=== PATIENT | male | born 1980 | race Caucasian/White ===

== ENCOUNTER 2016-10-19 01:59 | Inpatient (IN) | payer MEDICAID, OTHER ==
[~2016-10-19] VITALS: Ht 172.7 cm; Wt 78.5 kg
[2016-10-19 02:04] VITALS: Ht 172.7 cm; Wt 78.5 kg
[2016-10-19] MEDS ORDERED: ONDANSETRON 4 MG INJ IV STA (03:37)
[2016-10-19] MEDS ORDERED: morphine 4 MG/ML VIAL IV STA (03:37)
[2016-10-19] MEDS ORDERED: SOD CHLORIDE 0.9% 1,000 ML IV STA (03:37)
[2016-10-19] MEDS ORDERED: LIDOCAINE/MYLANTA 40 ML BTL PO STA (03:37)
[2016-10-19] MEDS ORDERED: FAMOTIDINE 20 MG INJ IV STA (03:37)
[2016-10-19 04:17] LABS: ADD SCAN DIFF NO
[2016-10-19] MEDS ORDERED: MULTI PO (04:37)
[2016-10-19] MEDS ORDERED: IBUP200C11 PO (04:37)
[2016-10-19 04:39] LABS: ALBUMIN 4.9 g/dl (3.3-4.9); ALBUMIN/GLOBULIN RATIO 1.4; BILIRUBIN,INDIRECT 2.6 mg/dl (0-1.1); BILIRUBIN,TOTAL 4.6 mg/dl (0.2-1.3); CALCIUM 9.9 mg/dl (8.4-10.2); CREATININE 0.69 mg/dl (0.61-1.24); POTASSIUM 3.6 mmol/L (3.5-5.1); TOTAL PROTEIN 8.4 g/dl (6.1-8.1)
[2016-10-19 04:52] LABS: BASOPHILS % 0.8 % (0.0-2.0); EOSINOPHILS # 0.3 10^3/ul (0.0-0.5); EOSINOPHILS % 5.8 % (0.0-7.0); HEMATOCRIT 43.6 % (42.0-52.0); HEMOGLOBIN 14.7 g/dl (14.0-18.0); LYMPHOCYTES # 1.5 10^3/ul (0.8-2.9); LYMPHOCYTES % 29.8 % (15.0-51.0); MEAN CORPUSCULAR HEMOGLOBIN 29.5 pg (29.0-33.0); MEAN CORPUSCULAR HGB CONC 33.7 g/dl (32.0-37.0); MEAN CORPUSCULAR VOLUME 87.6 fl (82.0-101.0); MEAN PLATELET VOLUME 10.4 fl (7.4-10.4); MONOCYTE # 0.5 10^3/ul (0.3-0.9); MONOCYTES % 8.9 % (0.0-11.0); NEUTROPHIL # 2.8 10^3/ul (1.6-7.5); NEUTROPHILS % 54.5 % (39.0-77.0); PLATELET COUNT 378 10^3/UL (140-415); RED BLOOD COUNT 4.98 10^6/ul (4.70-6.10); RED CELL DISTRIBUTION WIDTH 12.7 % (11.5-14.5); WHITE BLOOD COUNT 5.2 10^3/ul (4.8-10.8)
[2016-10-19 05:19] LABS: ADD UMIC YES; UR ASCORBIC ACID 40 mg/dL (NEGATIVE); UR BILIRUBIN (Dip) 2+ mg/dL (NEGATIVE); UR BLOOD (Dip) NEGATIVE (NEGATIVE); UR CLARITY SLIGHTLY CLOUDY (CLEAR); UR COLOR AMBER (YELLOW); UR GLUCOSE (Dip) NEGATIVE (NEGATIVE); UR KETONES (Dip) 1+ mg/dL (NEGATIVE); UR LEUKOCYTE ESTERASE (Dip) NEGATIVE Leu/ul (NEGATIVE); UR MUCUS MODERATE /HPF (NONE SEEN); UR NITRITE (Dip) NEGATIVE (NEGATIVE); UR RBC 1 /HPF (0-5); UR TOTAL PROTEIN (Dip) 1+ mg/dl (NEGATIVE); UR UROBILINOGEN (Dip) 2+ mg/dL (NEGATIVE)
--- NOTE | 2016-10-19 05:46 | ERA ---
ER Documentation Chief Complaint Date/Time DATE: 10/19/16 TIME: 05:43 Chief Complaint AP x 1 month, intermittent. +nausea. worse when eating HPI 36-year-old male comes in with abdominal pain for 1 month intermittent with associated nausea when eating. Pain is mild to moderate intensity. No fevers no chills. No other current complaints. Pain is mild to moderate intensity. ROS All systems reviewed and are negative except as per history of present illness. Medications Home Meds Reported Medications Multivitamins* (Theragran*) 1 Tab Tab, 1 TAB PO DAILY, TAB 10/19/16 Ibuprofen* (Advil*) 200 Mg Capsule, 200 MG PO Q6H Y for PAIN, CAP 10/19/16 Allergies Allergies: Coded Allergies: No Known Drug Allergies (Verified Allergy, Unknown, 10/19/16) PMhx/Soc Medical and Surgical Hx: pt denies Medical Hx, pt denies Surgical Hx Hx Alcohol Use: Yes (occassional) Hx Substance Use: No Hx Tobacco Use: No Smoking Status: Never smoker Physical Exam Vitals Vital Signs Date Time Temp Pulse Resp B/P Pulse Ox O2 Delivery O2 Flow Rate FiO2 10/19/16 02:04 97.9 67 18 139/83 98 Physical Exam Const: [] Head: Atraumatic Eyes: Normal Conjunctiva ENT: Normal External Ears, Nose and Mouth. Neck: Full range of motion..~ No meningismus. Resp: Clear to auscultation bilaterally Cardio: Regular rate and rhythm, no murmurs Abd: Soft, non tender, non distended. Normal bowel sounds Skin: No petechiae or rashes Back: No midline or flank tenderness Ext: No cyanosis, or edema Neur: Awake and alert Psych: Normal Mood and Affect Result Diagram: 10/19/16 0350 10/19/16 0350 Results 24 hrs Laboratory Tests Test 10/19/16 03:50 White Blood Count 5.210^3/ul Red Blood Count 4.9810^6/ul Hemoglobin 14.7g/dl Hematocrit 43.6% Mean Corpuscular Volume 87.6fl Mean Corpuscular Hemoglobin 29.5pg Mean Corpuscular Hemoglobin Concent 33.7g/dl Red Cell Distribution Width 12.7% Platelet Count 83168^3/UL Mean Platelet Volume 10.4fl Neutrophils % 54.5% Lymphocytes % 29.8% Monocytes % 8.9% Eosinophils % 5.8% Basophils % 0.8% Nucleated Red Blood Cells % 0.0/100WBC Neutrophils # 2.810^3/ul Lymphocytes # 1.510^3/ul Monocytes # 0.510^3/ul Eosinophils # 0.310^3/ul Basophils # 0.010^3/ul Nucleated Red Blood Cells # 0.010^3/ul Urine Color LACY Urine Clarity SLIGHTLY CLOUDY Urine pH 5.0 Urine Specific [place] 1.030 Urine Ketones 1+mg/dL Urine Nitrite NEGATIVEmg/dL Urine Bilirubin 2+mg/dL Urine Urobilinogen 2+mg/dL Urine Leukocyte Esterase NEGATIVELeu/ul Urine Microscopic RBC 1/HPF Urine Microscopic WBC 4/HPF Urine Mucus MODERATE/HPF Urine Hemoglobin NEGATIVEmg/dL Urine Glucose NEGATIVEmg/dL Urine Total Protein 1+mg/dl Sodium Level 142mmol/L Potassium Level 3.6mmol/L Chloride Level 98mmol/L Carbon Dioxide Level 28mmol/L Anion Gap 20 Blood Urea Nitrogen 14mg/dl Creatinine 0.69mg/dl Glucose Level 102mg/dl Calcium Level 9.9mg/dl Total Bilirubin 4.6mg/dl Direct Bilirubin 2.00mg/dl Indirect Bilirubin 2.6mg/dl Aspartate Amino Transf (AST/SGOT) 125IU/L Alanine Aminotransferase (ALT/SGPT) 375IU/L Alkaline Phosphatase 204IU/L Total Protein 8.4g/dl Albumin 4.9g/dl Globulin 3.50g/dl Albumin/Globulin Ratio 1.40 Lipase 92U/L Current Medications Medications (Trade) Dose Ordered Sig/Sena Route PRN Reason Start Time Stop Time Status Last Admin Dose Admin Sodium Chloride (NS) 1,000 ml @ 1,000 mls/hr Q1H STAT IV 10/19/16 03:37 10/19/16 04:36 DC 10/19/16 03:56 Morphine Sulfate (morphine) 4 mg ONCE STAT IV 10/19/16 03:37 10/19/16 03:39 DC 10/19/16 03:56 Ondansetron HCl (Zofran Inj) 4 mg ONCE STAT IV 10/19/16 03:37 10/19/16 03:39 DC 10/19/16 03:56 Famotidine (Pepcid Iv) 20 mg ONCE STAT IV 10/19/16 03:37 10/19/16 03:39 DC 10/19/16 03:56 Miscellaneous Medication (Gi Cocktail (2)) 40 ml ONCE STAT PO 10/19/16 03:37 10/19/16 03:39 DC 10/19/16 03:56 Procedures/MDM Medical decision-makin-year-old male elevation in LFTs likely consistent with choledocholithiasis. Patient will be admitted. Dr. Anthony will be consulted for surgery. Patient be admitted to hospitalist. Departure Diagnosis: Primary Impression: Cholecystitis Condition: Serious CHARI GIPSON Oct 19, 2016 05:46
[2016-10-19] MEDS ORDERED: PIPER-TAZO 3.375 GM IV (PMX) 100 ML IVPB ONE (06:00)
--- NOTE | 2016-10-19 06:03 | RADRPT ---
PROCEDURE: ULTRASOUND LIMITED ABDOMEN CLINICAL INDICATION: 36-year-old male with abdominal pain. TECHNIQUE: Multiple sonographic of the right upper quadrant of the abdomen were obtained. The imag es were reviewed on a PACS workstation. COMPARISON: None. FINDINGS: The pancreas is partially visualized and is otherwise without abnormal echogenicity. The liver displays normal echogenicity. The liver measures 18.1 cm in length. No evidence of intrah epatic biliary ductal dilatation is seen. The portal and hepatic veins are unremarkable. The gallbladder is distended and contains multiple shadowing stones. The gallbladder wall is thicke marysol measuring 5.1 mm. No pericholecystic fluid is seen. The common bile duct measures 6.1 mm and is mildly dilated. The right kidney displays normal echogenicity. The right kidney measures 12.1 cm in maximal length. No caliectasis or hydronephrosis is seen. No free fluid is seen. IMPRESSION: Cholelithiasis with thickened gallbladder wall and mildly dilated common bile duct. .Cristobal Nobles MD, MD Date Time Electronically viewed and signed by .Cristobal Nobles MD, on 10/19/2016 06:03 .M/
[2016-10-19] MEDS ORDERED: ONDANSETRON 4 MG INJ IV PRN (07:30)
[2016-10-19] MEDS ORDERED: NACL 0.9% 3 ML SYG IV SCH (07:30)
[2016-10-19] MEDS ORDERED: ACETAMINOPHEN 325 MG TAB PO PRN (07:30)
[2016-10-19 07:58] VITALS: BP 118/68; RESP 19
[2016-10-19] MEDS: SOD CHLORIDE 0.9% 1,000 ML IV SCH (08:00)
[2016-10-19] MEDS: morphine 2 MG INJ IV PRN ×3 (10:00→23:19)
--- NOTE | 2016-10-19 10:03 | HP ---
Date/Time of Note Date/Time of Note DATE: 10/19/16 TIME: 09:59 Assessment/Plan VTE Prophylaxis VTE Prophylaxis Intervention: SCD's Assessment/Plan Chief Complaint/Hosp Course 1. Symptomatic cholelithiasis. Possible choledocholithiasis. The patient will be kept n.p.o. The patient will be provided with adequate pain control. MRCP will be ordered to evaluate for any underlying choledocholithiasis. General surgery and gastroenterology consult will be obtained. 2. Transaminitis with hyperbilirubinemia. Most probably secondary to #1. Management as per #1. Plan: The patient will be admitted to inpatient medical surgical floor. The patient will be kept n.p.o. The patient will be started on DVT prophylaxis and gastrointestinal prophylaxis. The patient will remain a full code. Activities will be as tolerated. The rest of the patient's management will be based on the clinical course and the results of diagnostic studies. Based on the patient's clinical presentation, he most probably requires at least one midnight's stay for further management and evaluation of his clinical presentation. The case and management of this patient was fully discussed with . Problems: HPI/ROS Admit Date/Time Admit Date/Time Oct 19, 2016 at 05:57 Hx of Present Illness Reason for admission: Abdominal pain 1 month. Positive nausea. Consultants 1. Андрей Anthony MD, General surgery. 2. Magaly Rodriguez MD, Gastroenterology. This is a 36-year-old male with no significant past medical history who came to the emergency room with chief complaint of abdominal pain that has been intermittent and going on for the past 1 month with associated nausea. The patient verbalized the abdominal pain is epigastric that it is worse after eating with radiation to the back. The patient verbalized associated nausea but no vomiting. Patient denied any fevers. The patient rated the abdominal pain as 10/10. The patient sought medical attention twice as outpatient when he was sent home on antacids with no significant improvement. The patient denied any chest pain, dyspnea, dysuria, hematuria, diarrhea, melena, or hematochezia. In the emergency room, the patient was noticed to have hyperbilirubinemia with underlying transaminitis. The patient underwent a gallbladder ultrasound that showed cholelithiasis with thickened gallbladder wall and mildly dilated common bile duct. The patient was treated with IV Zosyn, IV analgesics and IV antiemetics in the emergency room. General surgery consult was called by the ER physician. ROS Constitutional: poor po Eyes: no complaints ENT: no complaints Respiratory: no complaints Cardiovascular: no complaints Gastrointestinal: decreased appetite, nausea, pain Genitourinary: no complaints Musculoskeletal: no complaints Skin: no complaints Neurologic: no complaints Endocrine: no complaints Lymphatic: no complaints Psychological: no complaints Immunologic: no complaints PMH/Family/Social Past Medical History Medical History: no pertinent history Past Surgical History Past Surgical Hx: no surgical history Family History Significant Family History: diabetes Social History Works in [employer]. Alcohol Use: occasionally Smoking Status: Never smoker Drug Use: none Exam/Review of Systems Vital Signs Vitals Vital Signs Date Time Temp Pulse Resp B/P Pulse Ox O2 Delivery O2 Flow Rate FiO2 10/19/16 07:58 98.5 67 19 118/68 99 10/19/16 07:00 Room Air Exam Exam General: Adequately build 36 year-old male lying in bed in no apparent distress. HEENT: Normocephalic, atraumatic. Eyes: Icteric sclerae, conjunctivae clear. ENT : Nasal septum midline, oral mucosa moist. Neck supple, no JVD noticed. Respiratory: Bilaterally clear breath sounds. No use of accessory muscles of respiration. No adventitious breath sounds. Cardiovascular: S1, S2 heard. No murmurs or gallops. Abdomen: Soft and nondistended. Bowel sounds positive in all 4 quadrants. Minimal epigastric tenderness. No Almodovar's sign. Genitourinary: Deferred. Extremities: No cyanosis, no clubbing, no edema. Peripheral pulses palpable. Neurologic: Cranial nerves II through XII grossly intact. The patient is awake, alert, and oriented. Skin: Normal skin turgor. No skin rashes. Labs Result Diagram: 10/19/16 0350 10/19/16 0350 Medications Medications Current Medications Sodium Chloride (NS) 1,000 ml @ 70 mls/hr [id number] IV Last administered on 10/19t 08:00; Admin Dose 70 MLS/HR; Start 10/19/16 at 11:00 Ondansetron HCl (Zofran Inj) 4 mg Q6H PRN IV NAUSEA AND/OR VOMITING; Start 02/25 at 07:30 Acetaminophen (Tylenol Tab) 650 mg Q6H PRN PO PAIN LEVEL 1-3 OR FEVER; Start at 07:30 Morphine Sulfate (morphine) 2 mg Q4H PRN IV SEVERE PAIN LEVEL 7-10; Start 10/19 at 07:30 Pantoprazole 40 mg 40 mg DAILY@06 IV ; Start 10/20/16 at 06:00 Piperacillin Sod/ Tazobactam Sod (Zosyn 3.375gm/ 100 ml (Pmx)) 100 ml @ 200 mls /hr Q6 IVPB ; Start 10/19/16 at 12:00 Procedures Procedures Gallbladder Ultrasound IMPRESSION: Cholelithiasis with thickened gallbladder wall and mildly dilated common bile duct. STEPHANIE HEATH NP Oct 19, 2016 10:03 STEPHANIE HEATH NP Oct 19, 2016 10:03
[2016-10-19 11:35] LABS: THYROID STIMULATING HORMONE 0.859 MIU/L (0.465-4.680)
[2016-10-19] MEDS: PIPER-TAZO 3.375 GM IV (PMX) 100 ML IVPB SCH ×3 (11:48→23:19)
--- NOTE | 2016-10-19 13:35 | RADRPT ---
PROCEDURE: MRCP. CLINICAL INDICATION: Abdominal pain. TECHNIQUE: MRCP was performed on a high field MRI scanner. Patient was examined without contrast. 3-D coronal rotating MIP images of the biliary tree are available for review. COMPARISON: Gallbladder ultrasound 10/19/2016. FINDINGS: The gallbladder is mildly distended. Multiple round signal voids are seen within the gallbladder ne ck compatible with cholelithiasis. Mild gallbladder wall edema is observed. There is no pericholec ystic fluid. The common bile duct is dilated measuring approximately 8.5 mm in greatest diameter. Multiple small signal voids are seen within the distal portion of the common bile duct compatible wi th choledocholithiasis. Moderate intrahepatic biliary duct dilatation is present. There is no panc reatic duct dilatation. The liver and spleen are homogeneous in signal intensity. The pancreas and adrenal glands are unrem arkable. The kidneys are symmetric in size and signal intensity. There is no hydronephrosis or perinephric e dee. The abdominal aorta is normal in caliber. There is no periaortic / retroperitoneal lymphadenopathy. The stomach is collapsed. The visualized portions of the small and large intestines are unremarkabl e. There is no ascites. IMPRESSION: Cholelithiasis with mild gallbladder distension and wall thickening suggesting sequelae of cholecyst itis. Choledocholithiasis with moderate intrahepatic biliary duct dilatation. RPTAT: HLST .Grisel Lugo MD, Date Time Electronically viewed and signed by .Grisel Lugo MD, on 10/19/2016 13:35 .T/
[2016-10-19] MEDS ORDERED: PIPER-TAZO 3.375 GM IV (PMX) 100 ML IVPB SCH (14:00)
--- NOTE | 2016-10-19 15:04 | CONS ---
Date/Time of Note Date/Time of Note DATE: 10/19/16 TIME: 14:51 Assessment/Plan Assessment/Plan Additional Assessment/Plan Assessment * Transaminitis Choledocholithiasis with cholecystolithiasis Plan * ERCP risks and benefit explained to patient and agreed with the planned procedure * Continue present management Consultation Date/Type/Reason Admit Date/Time Oct 19, 2016 at 05:57 Date of Consultation: Oct 19, 2016 Type of Consultation: Gastroenterology Reason for Consultation Choledocholithiasis Referring Provider: STEPHANIE HEATH NP Hx of Present Illness 36 year old male with no known past medical history presented in the emergency room wit right upper quadrant pain with nausea but no vomiting.Present condition started 1 month as on and off vague epigastric pain occurring on an off getting worse 2 days prior to admission with nausea but no vomiting ,fever nor hematemesis .emergency room workup revealed WBC 5,2,hemoglobin 14.7hematocrit 43.6,total bilirubin 4.6,AST 125,ALT 375,alkaline phosphatase 204 ultrasound revealed Cholelithiasis with thickened gallbladder wall and mildly dilated common bile duct. MRCP Cholelithiasis with mild gallbladder distension and wall thickening suggesting sequelae of cholecystitis.Choledocholithiasis with moderate intrahepatic biliary duct dilatation. We have discussed the planned procedure ERCP to the patient and agreed with the planned procedure Constitutional: improved, no complaints Eyes: no complaints ENT: no complaints Respiratory: no complaints Cardiovascular: no complaints Gastrointestinal: decreased appetite, nausea, pain Genitourinary: no complaints Musculoskeletal: no complaints Skin: no complaints Neurologic: no complaints Endocrine: no complaints Lymphatic: no complaints Psychological: no complaints Immunologic: no complaints Past Medical History Medical History: no pertinent history Past Surgical History Past Surgical Hx: no surgical history Social History Alcohol Use: occasionally Smoking Status: Unknown if ever smoked Drug Use: none Exam/Review of Systems Vital Signs Vitals Vital Signs Date Time Temp Pulse Resp B/P Pulse Ox O2 Delivery O2 Flow Rate FiO2 10/19/16 07:58 98.5 67 19 118/68 99 10/19/16 07:00 Room Air Exam Constitutional: alert, oriented, well developed Psych: nl mood/affect, no complaints Head: atraumatic, normocephalic Eyes: icteric ENMT: nl external ears & nose Neck: non-tender, supple Respiratory: clear to auscultation, normal air movement Cardiovascular: nl pulses, regular rate and rhythm Gastrointestinal: nl liver, spleen, non-tender, soft Musculoskeletal: nl extremities to inspection, nl gait and stance Extremities: normal pulses Neurological: nl mental status, nl speech, nl strength Skin: nl turgor, No rash or lesions Lymph: nl lymph nodes Results Result Diagram: 10/19/16 0350 10/19/16 0350 Results 24 hrs Laboratory Tests Test 10/19/16 03:50 White Blood Count 5.2 Red Blood Count 4.98 Hemoglobin 14.7 Hematocrit 43.6 Mean Corpuscular Volume 87.6 Mean Corpuscular Hemoglobin 29.5 Mean Corpuscular Hemoglobin Concent 33.7 Red Cell Distribution Width 12.7 Platelet Count 378 Mean Platelet Volume 10.4 Neutrophils % 54.5 Lymphocytes % 29.8 Monocytes % 8.9 Eosinophils % 5.8 Basophils % 0.8 Nucleated Red Blood Cells % 0.0 Neutrophils # 2.8 Lymphocytes # 1.5 Monocytes # 0.5 Eosinophils # 0.3 Basophils # 0.0 Nucleated Red Blood Cells # 0.0 Urine Color LACY Urine Clarity SLIGHTLY CLOUDY A Urine pH 5.0 Urine Specific [place] 1.030 Urine Ketones 1+ H Urine Nitrite NEGATIVE Urine Bilirubin 2+ H Urine Urobilinogen 2+ H Urine Leukocyte Esterase NEGATIVE Urine Microscopic RBC 1 Urine Microscopic WBC 4 Urine Mucus MODERATE Urine Hemoglobin NEGATIVE Urine Glucose NEGATIVE Urine Total Protein 1+ H Sodium Level 142 Potassium Level 3.6 Chloride Level 98 Carbon Dioxide Level 28 Anion Gap 20 H Blood Urea Nitrogen 14 Creatinine 0.69 Glucose Level 102 Hemoglobin A1c 5.6 Calcium Level 9.9 Total Bilirubin 4.6 H Direct Bilirubin 2.00 H Indirect Bilirubin 2.6 H Aspartate Amino Transf (AST/SGOT) 125 H Alanine Aminotransferase (ALT/SGPT) 375 H Alkaline Phosphatase 204 H Total Protein 8.4 H Albumin 4.9 Globulin 3.50 H Albumin/Globulin Ratio 1.40 Triglycerides Level 114 Cholesterol Level 171 LDL Cholesterol, Calculated 114 HDL Cholesterol 34 Cholesterol/HDL Ratio 5.0 Lipase 92 Thyroid Stimulating Hormone (TSH) 0.859 Free Thyroxine 1.60 Medications Medications Current Medications Sodium Chloride (NS) 1,000 ml @ 70 mls/hr [id number] IV Last administered on 10/19t 08:00; Admin Dose 70 MLS/HR; Start 10/19/16 at 11:00 Ondansetron HCl (Zofran Inj) 4 mg Q6H PRN IV NAUSEA AND/OR VOMITING; Start 02/25 at 07:30 Acetaminophen (Tylenol Tab) 650 mg Q6H PRN PO PAIN LEVEL 1-3 OR FEVER; Start at 07:30 Morphine Sulfate (morphine) 2 mg Q4H PRN IV SEVERE PAIN LEVEL 7-10 Last administered on 10/19/16 10:00; Admin Dose 2 MG; Start 10/19/16 at 07:30 Pantoprazole 40 mg 40 mg DAILY@06 IV ; Start 10/20/16 at 06:00 Piperacillin Sod/ Tazobactam Sod (Zosyn 3.375gm/ 100 ml (Pmx)) 100 ml @ 200 mls /hr Q6 IVPB Last administered on 10/19/16 11:48; Admin Dose 200 MLS/HR; Start 10/19/16 at 12:00 MELVINA HOLLIS MD Oct 19, 2016 15:01
--- NOTE | 2016-10-19 17:18 | HP ---
Date/Time of Note Date/Time of Note DATE: 10/19/16 TIME: 17:17 Assessment/Plan VTE Prophylaxis VTE Prophylaxis Intervention: ambulation Lines/Catheters IV Catheter Type (from Nrs): Peripheral IV Assessment/Plan Assessment/Plan Cholelithiasis and choledocholithiasis For ERCP tomorrow Will need laparoscopic cholecystectomy. If I can get operative time this week, will perform during his hospitalization. However, if the OR is too busy, we will referred for outpatient lap scopic cholecystectomy HPI/ROS Admit Date/Time Admit Date/Time Oct 19, 2016 at 05:57 Hx of Present Illness The patient is a 36-year-old male who presented to the emergency room with epigastric abdominal pain for 1 month. Pain is usually worse after eating and he has some radiation to the back. He has nausea but no emesis. He denies fevers, chills or night sweats. He has had outpatient treatment twice and was given antacids with no improvement. His workup in the ER was consistent with choledocholithiasis. I was called for consultation. ROS Constitutional: poor po Eyes: no complaints ENT: no complaints Respiratory: no complaints Cardiovascular: no complaints Gastrointestinal: decreased appetite, nausea, pain Genitourinary: no complaints Musculoskeletal: no complaints Skin: no complaints Neurologic: no complaints Endocrine: no complaints Lymphatic: no complaints Psychological: nl mood/affect, no complaints Immunologic: no complaints PMH/Family/Social Past Medical History Medical History: no pertinent history Past Surgical History Past Surgical Hx: no surgical history Family History Significant Family History: no pertinent family hx Social History Alcohol Use: occasionally Smoking Status: Unknown if ever smoked Drug Use: none Exam/Review of Systems Vital Signs Vitals Vital Signs Date Time Temp Pulse Resp B/P Pulse Ox O2 Delivery O2 Flow Rate FiO2 10/19/16 07:58 98.5 67 19 118/68 99 10/19/16 07:00 Room Air Exam Constitutional: alert, oriented, well developed Psych: no complaints Head: normocephalic Eyes: nl conjunctiva ENMT: nl external ears & nose Neck: supple Respiratory: clear to auscultation Cardiovascular: regular rate and rhythm Gastrointestinal: distended (Mildly), non-tender, soft Musculoskeletal: nl extremities to inspection Extremities: normal pulses Labs Result Diagram: 10/19/16 0350 10/19/16 0350 Medications Medications Current Medications Sodium Chloride (NS) 1,000 ml @ 70 mls/hr [id number] IV Last administered on 10/19 08:00; Admin Dose 70 MLS/HR; Start 10/19/16 at 11:00 Ondansetron HCl (Zofran Inj) 4 mg Q6H PRN IV NAUSEA AND/OR VOMITING; Start 02/25 at 07:30 Acetaminophen (Tylenol Tab) 650 mg Q6H PRN PO PAIN LEVEL 1-3 OR FEVER; Start at 07:30 Morphine Sulfate (morphine) 2 mg Q4H PRN IV SEVERE PAIN LEVEL 7-10 Last administered on 10/19/16 10:00; Admin Dose 2 MG; Start 10/19/16 at 07:30 Pantoprazole 40 mg 40 mg DAILY@06 IV ; Start 10/20/16 at 06:00 Piperacillin Sod/ Tazobactam Sod (Zosyn 3.375gm/ 100 ml (Pmx)) 100 ml @ 200 mls /hr Q6 IVPB Last administered on 10/19/16 11:48; Admin Dose 200 MLS/HR; Start 10/19/16 at 12:00 Procedures Procedures Patient: RUFINA CHARLES : 1980 Age: 36 Sex: M MR #: [id number] DOS: 10/19/16 0000 Ordering MD: MELVINA HOLLIS MD Location: [facility] [place] Room/Bed: [facility] PROCEDURE: MRCP. CLINICAL INDICATION: Abdominal pain. TECHNIQUE: MRCP was performed on a high field MRI scanner. Patient was examined without contrast. 3-D coronal rotating MIP images of the biliary tree are available for review. COMPARISON: Gallbladder ultrasound 10/19/2016. FINDINGS: The gallbladder is mildly distended. Multiple round signal voids are seen within the gallbladder neck compatible with cholelithiasis. Mild gallbladder wall edema is observed. There is no pericholecystic fluid. The common bile duct is dilated measuring approximately 8.5 mm in greatest diameter. Multiple small signal voids are seen within the distal portion of the common bile duct compatible with choledocholithiasis. Moderate intrahepatic biliary duct dilatation is present. There is no pancreatic duct dilatation. The liver and spleen are homogeneous in signal intensity. The pancreas and adrenal glands are unremarkable. The kidneys are symmetric in size and signal intensity. There is no hydronephrosis or perinephric edema. The abdominal aorta is normal in caliber. There is no periaortic / retroperitoneal lymphadenopathy. The stomach is collapsed. The visualized portions of the small and large intestines are unremarkable. There is no ascites. IMPRESSION: Cholelithiasis with mild gallbladder distension and wall thickening suggesting sequelae of cholecystitis. Choledocholithiasis with moderate intrahepatic biliary duct dilatation. MAYA SCRUGGS MD Oct 19, 2016 17:17
[2016-10-19 20:01] VITALS: BP 130/75; PULSE 58; RESP 18
[2016-10-20] VITALS (12 sets, daily range): BP systolic 110–132; BP diastolic 61–80; PULSE 60–88; RESP 17–25
[2016-10-20] MEDS: SOD CHLORIDE 0.9% 1,000 ML IV SCH ×2 (00:53→15:45)
[2016-10-20 05:20] LABS: ADD SCAN DIFF NO
[2016-10-20 05:29] LABS: BASOPHILS % 0.9 % (0.0-2.0); EOSINOPHILS # 0.2 10^3/ul (0.0-0.5); EOSINOPHILS % 4.9 % (0.0-7.0); HEMATOCRIT 42.2 % (42.0-52.0); LYMPHOCYTES # 1.3 10^3/ul (0.8-2.9); LYMPHOCYTES % 28.3 % (15.0-51.0); MEAN CORPUSCULAR HEMOGLOBIN 29.3 pg (29.0-33.0); MEAN CORPUSCULAR HGB CONC 33.2 g/dl (32.0-37.0); MEAN CORPUSCULAR VOLUME 88.3 fl (82.0-101.0); MEAN PLATELET VOLUME 10.3 fl (7.4-10.4); MONOCYTE # 0.3 10^3/ul (0.3-0.9); MONOCYTES % 7.2 % (0.0-11.0); NEUTROPHIL # 2.8 10^3/ul (1.6-7.5); NEUTROPHILS % 58.5 % (39.0-77.0); PLATELET COUNT 344 10^3/UL (140-415); RED BLOOD COUNT 4.78 10^6/ul (4.70-6.10); RED CELL DISTRIBUTION WIDTH 12.8 % (11.5-14.5); WHITE BLOOD COUNT 4.7 10^3/ul (4.8-10.8)
[2016-10-20 05:46] LABS: INR 0.94; PROTIME 12.6 Sec (12.2-14.2)
[2016-10-20 05:47] LABS: PARTIAL THROMBOPLASTIN TIME 27.4 Sec (25.0-35.0)
[2016-10-20 05:55] LABS: ALBUMIN 4.4 g/dl (3.3-4.9); ALBUMIN/GLOBULIN RATIO 1.69; BILIRUBIN,DIRECT 2.3 mg/dl (0.00-0.20); BILIRUBIN,INDIRECT 2.8 mg/dl (0-1.1); BILIRUBIN,TOTAL 5.1 mg/dl (0.2-1.3); CALCIUM 9.1 mg/dl (8.4-10.2); CREATININE 0.78 mg/dl (0.61-1.24); POTASSIUM 4.3 mmol/L (3.5-5.1)
[2016-10-20 05:57] LABS: MAGNESIUM 1.9 mg/dl (1.7-2.5); PHOSPHORUS 3.4 mg/dl (2.5-4.9)
[2016-10-20] MEDS: PANTOPRAZOLE 40 MG INJ IV SCH (06:13)
[2016-10-20] MEDS: PIPER-TAZO 3.375 GM IV (PMX) 100 ML IVPB SCH ×3 (06:13→17:37)
[2016-10-20] MEDS ORDERED: CEFAZOLIN 1 GM INJ ONE (07:00)
--- NOTE | 2016-10-20 09:27 | PN ---
Date/Time of Note Date/Time of Note DATE: 10/20/16 TIME: 09:24 Assessment/Plan VTE Prophylaxis VTE Prophylaxis Intervention: SCD's Lines/Catheters [facility] Per[facility] IV Assessment/Plan Chief Complaint/Hosp Course 1. Symptomatic cholelithiasis with possible underlying cholecystitis. Continue n.p.o. Continue IV hydration. Continue pain control. Continue empiric antibiotics. 2. Choledocholithiasis with moderate intrahepatic biliary duct dilatation. Patient scheduled for ERCP. Being followed by gastroenterology. 3. Transaminitis with hyperbilirubinemia. Most probably secondary to #1 and # 2. Management as per #1 and #2. 4. Fluids, electrolytes, and nutrition. N.p.o. except medications. Continue IV hydration. 5. DVT prophylaxis with bilateral sequential compression devices. 6. Gastrointestinal prophylaxis. Proton pump inhibitors. 7. Plan. Continue in management. Await ERCP. Await further surgical recommendations. Case discussed with Dr. Howard Problems: Subjective 24 Hr Interval Summary Free Text/Dictation Abdominal pain well controlled. Exam/Review of Systems Vital Signs Vitals Vital Signs Date Time Temp Pulse Resp B/P Pulse Ox O2 Delivery O2 Flow Rate FiO2 10/20/16 08:00 98.1 74 18 116/65 100 10/19/16 20:01 Room Air Intake and Output 10/19/16 10/19/16 10/20/16 15:00 23:00 07:00 Intake Total 100 ml 850 ml 1600 ml Output Total 420 ml 1200 ml Balance 100 ml 430 ml 400 ml Exam General: Adequately build 36 year-old male lying in bed in no apparent distress. HEENT: Normocephalic, atraumatic. Eyes: Icteric sclerae, conjunctivae clear. ENT : Nasal septum midline, oral mucosa moist. Neck supple, no JVD noticed. Respiratory: Bilaterally clear breath sounds. No use of accessory muscles of respiration. No adventitious breath sounds. Cardiovascular: S1, S2 heard. No murmurs or gallops. Abdomen: Soft and nondistended. Bowel sounds positive in all 4 quadrants. Minimal epigastric tenderness. No Almodovar's sign. Genitourinary: Deferred. Extremities: No cyanosis, no clubbing, no edema. Peripheral pulses palpable. Neurologic: Cranial nerves II through XII grossly intact. The patient is awake, alert, and oriented. Skin: Normal skin turgor. No skin rashes. Results Result Diagram: 10/20/16 0436 10/20/16 0436 Results 24 hrs Laboratory Tests Test 10/20/16 04:36 White Blood Count 4.7 L Red Blood Count 4.78 Hemoglobin 14.0 Hematocrit 42.2 Mean Corpuscular Volume 88.3 Mean Corpuscular Hemoglobin 29.3 Mean Corpuscular Hemoglobin Concent 33.2 Red Cell Distribution Width 12.8 Platelet Count 344 Mean Platelet Volume 10.3 Neutrophils % 58.5 Lymphocytes % 28.3 Monocytes % 7.2 Eosinophils % 4.9 Basophils % 0.9 Nucleated Red Blood Cells % 0.0 Neutrophils # 2.8 Lymphocytes # 1.3 Monocytes # 0.3 Eosinophils # 0.2 Basophils # 0.0 Nucleated Red Blood Cells # 0.0 Prothrombin Time 12.6 Prothrombin Time Ratio 1.0 INR International Normalized Ratio 0.94 Activated Partial Thromboplast Time 27.4 Sodium Level 136 Potassium Level 4.3 Chloride Level 101 Carbon Dioxide Level 28 Anion Gap 11 # Blood Urea Nitrogen 7 Creatinine 0.78 Glucose Level 98 Calcium Level 9.1 Phosphorus Level 3.4 Magnesium Level 1.9 Total Bilirubin 5.1 H Direct Bilirubin 2.30 H Indirect Bilirubin 2.8 H Aspartate Amino Transf (AST/SGOT) 95 H Alanine Aminotransferase (ALT/SGPT) 255 H Alkaline Phosphatase 170 H Total Protein 7.0 # Albumin 4.4 Globulin 2.60 Albumin/Globulin Ratio 1.69 Medications Medications Current Medications Sodium Chloride (NS) 1,000 ml @ 70 mls/hr [id number] IV Last administered on 10/20 00:53; Admin Dose 70 MLS/HR; Start 10/19/16 at 11:00 Ondansetron HCl (Zofran Inj) 4 mg Q6H PRN IV NAUSEA AND/OR VOMITING; Start 02/25 at 07:30 Acetaminophen (Tylenol Tab) 650 mg Q6H PRN PO PAIN LEVEL 1-3 OR FEVER; Start at 07:30 Morphine Sulfate (morphine) 2 mg Q4H PRN IV SEVERE PAIN LEVEL 7-10 Last administered on 10/19/16 23:19; Admin Dose 2 MG; Start 10/19/16 at 07:30 Pantoprazole 40 mg 40 mg DAILY@06 IV Last administered on 10/20/16 06:13; Admin Dose 40 MG; Start 10/20/16 at 06:00 Piperacillin Sod/ Tazobactam Sod (Zosyn 3.375gm/ 100 ml (Pmx)) 100 ml @ 200 mls /hr Q6 IVPB Last administered on 10/20/16 06:13; Admin Dose 200 MLS/HR; Start 10/19/16 at 12:00 STEPHANIE HEATH NP Oct 20, 2016 09:27
--- NOTE | 2016-10-20 16:06 | PN ---
Date/Time of Note Date/Time of Note DATE: 10/20/16 TIME: 16:05 Assessment/Plan Lines/Catheters IV C[facility]ter Type (from [facility]): Peripheral IV Assessment/Plan Assessment/Plan Choledocholithiasis and cholelithiasis ERCP today Refer for outpatient laparoscopic cholecystectomy after ERCP and once LFTs decreased Subjective 24 Hr Interval Summary Constitutional: ambulates, improved, no complaints Exam/Review of Systems Vital Signs Vitals Vital Signs Date Time Temp Pulse Resp B/P Pulse Ox O2 Delivery O2 Flow Rate FiO2 10/20/16 08:00 98.1 74 18 116/65 100 10/19/16 20:01 Room Air Intake and Output 10/19/16 10/19/16 10/20/16 15:00 23:00 07:00 Intake Total 100 ml 850 ml 1600 ml Output Total 420 ml 1200 ml Balance 100 ml 430 ml 400 ml Exam Constitutional: alert, oriented, well developed Gastrointestinal: non-tender, soft Results Result Diagram: 10/20/16 0436 10/20/16 0436 MAYA SCRUGGS MD Oct 20, 2016 16:06
[2016-10-20] MEDS ORDERED: INDOMETHACIN 50 MG SUPP PR ONE (20:25)
[2016-10-20] MEDS ORDERED: IOHEXOL 300MG/ML 30 ML BTL ONE ×2 (20:25→21:33)
--- NOTE | 2016-10-20 20:51 | HPN ---
Date/Time of Note Date/Time of Note DATE: 10/20/16 TIME: 20:50 Interval H&P Admission Note Pt. seen H&P reviewed: No system changes MELVINA HOLLIS MD Oct 20, 2016 20:51
[2016-10-20] MEDS ORDERED: FENTAnyl 50 MCG/ML VIAL ONE (20:59)
[2016-10-20] MEDS ORDERED: MIDAZOLAM 1 MG/ML 2 ML INJ ONE (20:59)
[2016-10-20] MEDS ORDERED: PROPOFOL 100 ML ONE (21:19)
[2016-10-20] MEDS ORDERED: LIDOCAINE 100 MG SYRINGE ONE (21:19)
[2016-10-20] MEDS ORDERED: ONDANSETRON 4 MG INJ IV PRN (21:30)
[2016-10-20] MEDS ORDERED: HYDROmorphONE (0.2 MG/ML) 10ML SYG IV PRN (21:30)
[2016-10-20] MEDS ORDERED: ONDANSETRON 4 MG INJ ONE (21:40)
[2016-10-20] MEDS ORDERED: DEXAMETHASONE 4 MG/ML 1 ML INJ ONE (21:40)
--- NOTE | 2016-10-20 21:51 | OPR ---
Date/Time of Note Date/Time of Note DATE: 10/20/16 TIME: 21:48 Operative Report Preoperative Diagnosis * Choledocholithiasis by MRCP * Obstructive jaundice Postoperative Diagnosis Impression: * Choledocholithiasis: 3 large stones measuring approximately 1.2 cm each * Post standard sphincterotomy * Post hurricane balloon dilatation of ampulla to 10 mm * Post stone extraction Plan: * Close observation * Clear liquid diet if pain free * Laparoscopic cholecystectomy as soon as possible to avoid recurrence. Ideally during this hospitalization . Operation/Procedure Performed * ERCP plus sphincterotomy * ERCP plus balloon dilatation of the ampulla * ERCP plus stone removal Surgeon: MELVINA HOLLIS MD Anesthesia: general Estimated Blood Loss: none Specimens * None Grafts/Implants * None Complications: None MELVINA HOLLIS MD Oct 20, 2016 21:51
[2016-10-21] MEDS: PIPER-TAZO 3.375 GM IV (PMX) 100 ML IVPB SCH ×4 (01:11→20:04)
--- NOTE | 2016-10-21 01:39 | RADRPT ---
PROCEDURE: Fluoroscopy services CLINICAL INDICATION: Choledocholithiasis. TECHNIQUE: Fluoroscopy services during ERCP. COMPARISON: None FINDINGS: Fluoroscopy services during ERCP. Multiple intraoperative spot films were obtained at intermediate stages during this procedure and demonstrate ERCP with retrograde opacification and cannulization of the common bile duct, and balloon deployment. 300.6 seconds of fluoroscopy time were employed during this procedure. IMPRESSION: Fluoroscopy services during ERCP. RPTAT: [facility] Physician Earline Date Time Electronically viewed and signed by Physician Earline on 10/21/2016 01:39 RS/
[2016-10-21 05:18] LABS: ADD SCAN DIFF NO
[2016-10-21 05:22] LABS: BASOPHILS % 0.2 % (0.0-2.0); EOSINOPHILS % 0.2 % (0.0-7.0); HEMATOCRIT 43.5 % (42.0-52.0); LYMPHOCYTES % 18.6 % (15.0-51.0); MEAN CORPUSCULAR HEMOGLOBIN 29.9 pg (29.0-33.0); MEAN CORPUSCULAR HGB CONC 34.5 g/dl (32.0-37.0); MEAN CORPUSCULAR VOLUME 86.7 fl (82.0-101.0); MEAN PLATELET VOLUME 10.2 fl (7.4-10.4); MONOCYTE # 0.1 10^3/ul (0.3-0.9); MONOCYTES % 1.7 % (0.0-11.0); NEUTROPHIL # 4.3 10^3/ul (1.6-7.5); NEUTROPHILS % 79.1 % (39.0-77.0); PLATELET COUNT 393 10^3/UL (140-415); RED BLOOD COUNT 5.02 10^6/ul (4.70-6.10); RED CELL DISTRIBUTION WIDTH 12.5 % (11.5-14.5); WHITE BLOOD COUNT 5.4 10^3/ul (4.8-10.8)
[2016-10-21 06:02] LABS: MAGNESIUM 1.8 mg/dl (1.7-2.5); PHOSPHORUS 4.3 mg/dl (2.5-4.9)
[2016-10-21 06:15] LABS: ALBUMIN 4.4 g/dl (3.3-4.9); ALBUMIN/GLOBULIN RATIO 1.57; BILIRUBIN,DIRECT 2.6 mg/dl (0.00-0.20); BILIRUBIN,INDIRECT 2.4 mg/dl (0-1.1); CALCIUM 9.1 mg/dl (8.4-10.2); CREATININE 0.72 mg/dl (0.61-1.24); POTASSIUM 3.9 mmol/L (3.5-5.1); TOTAL PROTEIN 7.2 g/dl (6.1-8.1)
[2016-10-21] MEDS: PANTOPRAZOLE 40 MG INJ IV SCH (06:20)
[2016-10-21] MEDS: SOD CHLORIDE 0.9% 1,000 ML IV SCH ×3 (06:20→20:58)
[2016-10-21 07:34] VITALS: BP 91/53; RESP 18
[2016-10-21 07:40] VITALS: BP 101/58
[2016-10-21] MEDS: morphine 2 MG INJ IV PRN ×2 (09:20→13:11)
[2016-10-21 10:00] VITALS: BP 118/78
[2016-10-21] MEDS ORDERED: LIDOCAINE 1% (MPF) 30 ML INJ ONE (13:20)
[2016-10-21] MEDS ORDERED: BUPIVACAINE 0.25%/EPI (SDV) 30 ML INJ ONE (13:20)
--- NOTE | 2016-10-21 14:35 | PN ---
Date/Time of Note Date/Time of Note DATE: 10/21/16 TIME: 14:28 Assessment/Plan VTE Prophylaxis VTE Prophylaxis Intervention: ambulation Lines/Catheters IV Catheter Type (from [facility]): Peripheral IV Assessment/Plan Assessment/Plan Assessment * Choledocholithiasis with cholelithiasis ERCP/sphincterotomy/balloon dilatation/extraction of stone Choledocholithiasis: 3 large stones measuring approximately 1.2 cm each Post standard sphincterotomy Post hurricane balloon dilatation of ampulla to 10 mm Post stone extraction Plan * Continue present management * Case discussed with * Further orders will depend on clinical course Subjective 24 Hr Interval Summary Free Text/Dictation * Course reviewed with RN * Patient seen and examined * ERCP/sphincterotomy/balloon dilatation/extraction of stone Choledocholithiasis: 3 large stones measuring approximately 1.2 cm each Post standard sphincterotomy Post hurricane balloon dilatation of ampulla to 10 mm Post stone extraction * denies abdominal pain Constitutional: improved, no complaints Eyes: no complaints ENT: no complaints Respiratory: no complaints Cardiovascular: no complaints Gastrointestinal: no complaints Genitourinary: no complaints Musculoskeletal: no complaints Skin: no complaints Neurologic: no complaints Endocrine: no complaints Lymphatic: no complaints Psychological: nl mood/affect, no complaints Immunologic: no complaints Exam/Review of Systems Vital Signs Vitals Vital Signs Date Time Temp Pulse Resp B/P Pulse Ox O2 Delivery O2 Flow Rate FiO2 10/21/16 10:00 118/78 10/21/16 07:34 98.3 64 18 98 10/20/16 22:42 Room Air Intake and Output 10/20/16 10/20/16 10/21/16 15:00 23:00 07:00 Intake Total 820 ml 240 ml 1120 ml Output Total 800 ml Balance 820 ml 240 ml 320 ml Exam Constitutional: alert, oriented Head: normocephalic Eyes: icteric, nl conjunctiva Neck: non-tender, supple Respiratory: clear to auscultation, normal air movement Cardiovascular: nl pulses, regular rate and rhythm Gastrointestinal: nl liver, spleen, non-tender, soft Musculoskeletal: nl extremities to inspection, nl gait and stance Extremities: normal pulses Neurological: nl speech, nl strength Skin: nl turgor, rash or lesions Lymph: nl lymph nodes Results Result Diagram: 10/21/16 0431 10/21/16 0431 Results 24 hrs Laboratory Tests Test 10/21/16 04:31 White Blood Count 5.4 Red Blood Count 5.02 Hemoglobin 15.0 Hematocrit 43.5 Mean Corpuscular Volume 86.7 Mean Corpuscular Hemoglobin 29.9 Mean Corpuscular Hemoglobin Concent 34.5 Red Cell Distribution Width 12.5 Platelet Count 393 Mean Platelet Volume 10.2 Neutrophils % 79.1 H Lymphocytes % 18.6 Monocytes % 1.7 Eosinophils % 0.2 Basophils % 0.2 Nucleated Red Blood Cells % 0.0 Neutrophils # 4.3 Lymphocytes # 1.0 Monocytes # 0.1 L Eosinophils # 0.0 Basophils # 0.0 Nucleated Red Blood Cells # 0.0 Sodium Level 136 Potassium Level 3.9 Chloride Level 102 Carbon Dioxide Level 25 Anion Gap 13 Blood Urea Nitrogen 8 Creatinine 0.72 Glucose Level 111 Calcium Level 9.1 Phosphorus Level 4.3 Magnesium Level 1.8 Total Bilirubin 5.0 H Direct Bilirubin 2.60 H Indirect Bilirubin 2.4 H Aspartate Amino Transf (AST/SGOT) 97 H Alanine Aminotransferase (ALT/SGPT) 237 H Alkaline Phosphatase 192 H Total Protein 7.2 Albumin 4.4 Globulin 2.80 Albumin/Globulin Ratio 1.57 Medications Medications Current Medications Sodium Chloride (NS) 1,000 ml @ 70 mls/hr [id number] IV Last administered on 10/21 06:20; Admin Dose 70 MLS/HR; Start 10/19/16 at 11:00 Ondansetron HCl (Zofran Inj) 4 mg Q6H PRN IV NAUSEA AND/OR VOMITING; Start 02/25 at 07:30 Acetaminophen (Tylenol Tab) 650 mg Q6H PRN PO PAIN LEVEL 1-3 OR FEVER; Start at 07:30 Morphine Sulfate (morphine) 2 mg Q4H PRN IV SEVERE PAIN LEVEL 7-10 Last administered on 10/21/16 13:11; Admin Dose 2 MG; Start 10/19/16 at 07:30 Pantoprazole 40 mg 40 mg DAILY@06 IV Last administered on 10/21/16 06:20; Admin Dose 40 MG; Start 10/20/16 at 06:00 Piperacillin Sod/ Tazobactam Sod (Zosyn 3.375gm/ 100 ml (Pmx)) 100 ml @ 200 mls /hr Q6 IVPB Last administered on 10/21/16t 11:41; Admin Dose 200 MLS/HR; Start 10/19/16 at 12:00 ARAM WEN NP Oct 21, 2016 14:35
--- NOTE | 2016-10-21 18:23 | PN ---
Date/Time of Note Date/Time of Note DATE: 10/21/16 TIME: 18:22 Assessment/Plan VTE Prophylaxis VTE Prophylaxis Intervention: SCD's Lines/Catheters IV [facility] Type (from [facility]): Peripheral IV Assessment/Plan Chief Complaint/Hosp Course 1. Symptomatic cholelithiasis. Continue IV hydration. Continue pain control. Continue empiric antibiotics. Status post evaluation by general surgery. 2. Choledocholithiasis with moderate intrahepatic biliary duct dilatation. Status post ERCP with standard sphincterotomy, hurricane balloon dilatation of ampulla to 10 mm, and stone extraction on 10/20/2016. Being followed by gastroenterology. 3. Transaminitis with hyperbilirubinemia. Most probably secondary to #1 and # 2. Management as per #1 and #2. 4. Fluids, electrolytes, and nutrition. We will resume the patient's diet. Continue IV hydration. 5. DVT prophylaxis with bilateral sequential compression devices. 6. Gastrointestinal prophylaxis. Proton pump inhibitors. 7. Plan. Continue pain management. Start the patient on a diet. The patient tolerates a diet, the plan is to discharge patient home and follow-up with outpatient surgery for elective cholecystectomy. Case discussed with Dr. Howard Problems: Subjective 24 Hr Interval Summary Free Text/Dictation Denies any abdominal pain. Exam/Review of Systems Vital Signs Vitals Vital Signs Date Time Temp Pulse Resp B/P Pulse Ox O2 Delivery O2 Flow Rate FiO2 10/21/16 10:00 118/78 10/21/16 07:34 98.3 64 18 98 10/20/16 22:42 Room Air Intake and Output 10/20/16 10/20/16 10/21/16 15:00 23:00 07:00 Intake Total 820 ml 240 ml 1120 ml Output Total 800 ml Balance 820 ml 240 ml 320 ml Exam General: Adequately build 36 year-old male lying in bed in no apparent distress. HEENT: Normocephalic, atraumatic. Eyes: Icteric sclerae, conjunctivae clear. ENT : Nasal septum midline, oral mucosa moist. Neck supple, no JVD noticed. Respiratory: Bilaterally clear breath sounds. No use of accessory muscles of respiration. No adventitious breath sounds. Cardiovascular: S1, S2 heard. No murmurs or gallops. Abdomen: Soft, nontender, and nondistended. Bowel sounds positive in all 4 quadrants. Genitourinary: Deferred. Extremities: No cyanosis, no clubbing, no edema. Peripheral pulses palpable. Neurologic: Cranial nerves II through XII grossly intact. The patient is awake, alert, and oriented. Skin: Normal skin turgor. No skin rashes. Results Result Diagram: 10/21/16 0431 10/21/16 0431 Results 24 hrs Laboratory Tests Test 10/21/16 04:31 White Blood Count 5.4 Red Blood Count 5.02 Hemoglobin 15.0 Hematocrit 43.5 Mean Corpuscular Volume 86.7 Mean Corpuscular Hemoglobin 29.9 Mean Corpuscular Hemoglobin Concent 34.5 Red Cell Distribution Width 12.5 Platelet Count 393 Mean Platelet Volume 10.2 Neutrophils % 79.1 H Lymphocytes % 18.6 Monocytes % 1.7 Eosinophils % 0.2 Basophils % 0.2 Nucleated Red Blood Cells % 0.0 Neutrophils # 4.3 Lymphocytes # 1.0 Monocytes # 0.1 L Eosinophils # 0.0 Basophils # 0.0 Nucleated Red Blood Cells # 0.0 Sodium Level 136 Potassium Level 3.9 Chloride Level 102 Carbon Dioxide Level 25 Anion Gap 13 Blood Urea Nitrogen 8 Creatinine 0.72 Glucose Level 111 Calcium Level 9.1 Phosphorus Level 4.3 Magnesium Level 1.8 Total Bilirubin 5.0 H Direct Bilirubin 2.60 H Indirect Bilirubin 2.4 H Aspartate Amino Transf (AST/SGOT) 97 H Alanine Aminotransferase (ALT/SGPT) 237 H Alkaline Phosphatase 192 H Total Protein 7.2 Albumin 4.4 Globulin 2.80 Albumin/Globulin Ratio 1.57 Medications Medications Current Medications Sodium Chloride (NS) 1,000 ml @ 70 mls/hr [id number] IV Last administered on 10/21 06:20; Admin Dose 70 MLS/HR; Start 10/19/16 at 11:00 Ondansetron HCl (Zofran Inj) 4 mg Q6H PRN IV NAUSEA AND/OR VOMITING; Start 02/25 at 07:30 Acetaminophen (Tylenol Tab) 650 mg Q6H PRN PO PAIN LEVEL 1-3 OR FEVER; Start at 07:30 Morphine Sulfate (morphine) 2 mg Q4H PRN IV SEVERE PAIN LEVEL 7-10 Last administered on 10/21/16 13:11; Admin Dose 2 MG; Start 10/19/16 at 07:30 Pantoprazole 40 mg 40 mg DAILY@06 IV Last administered on 10/21/16 06:20; Admin Dose 40 MG; Start 10/20/16 at 06:00 Piperacillin Sod/ Tazobactam Sod (Zosyn 3.375gm/ 100 ml (Pmx)) 100 ml @ 200 mls /hr Q6 IVPB Last administered on 10/21/16 11:41; Admin Dose 200 MLS/HR; Start 10/19/16 at 12:00 STEPHANIE HEATH NP Oct 21, 2016 18:22
[2016-10-21 19:35] VITALS: BP 126/71; RESP 18
[2016-10-22] MEDS: PIPER-TAZO 3.375 GM IV (PMX) 100 ML IVPB SCH ×3 (01:11→12:00)
[2016-10-22 05:36] LABS: ADD SCAN DIFF NO
[2016-10-22 05:47] LABS: BASOPHILS % 0.8 % (0.0-2.0); EOSINOPHILS # 0.3 10^3/ul (0.0-0.5); EOSINOPHILS % 6.8 % (0.0-7.0); HEMATOCRIT 38.3 % (42.0-52.0); HEMOGLOBIN 13.1 g/dl (14.0-18.0); LYMPHOCYTES # 1.8 10^3/ul (0.8-2.9); LYMPHOCYTES % 38.4 % (15.0-51.0); MEAN CORPUSCULAR HGB CONC 34.2 g/dl (32.0-37.0); MEAN CORPUSCULAR VOLUME 87.8 fl (82.0-101.0); MEAN PLATELET VOLUME 10.2 fl (7.4-10.4); MONOCYTE # 0.4 10^3/ul (0.3-0.9); MONOCYTES % 8.1 % (0.0-11.0); NEUTROPHIL # 2.2 10^3/ul (1.6-7.5); NEUTROPHILS % 45.7 % (39.0-77.0); PLATELET COUNT 348 10^3/UL (140-415); RED BLOOD COUNT 4.36 10^6/ul (4.70-6.10); WHITE BLOOD COUNT 4.7 10^3/ul (4.8-10.8)
[2016-10-22 06:04] LABS: PHOSPHORUS 3.1 mg/dl (2.5-4.9)
[2016-10-22 06:08] LABS: ALBUMIN 3.8 g/dl (3.3-4.9); ALBUMIN/GLOBULIN RATIO 1.52; BILIRUBIN,DIRECT 0.5 mg/dl (0.00-0.20); BILIRUBIN,INDIRECT 2.3 mg/dl (0-1.1); BILIRUBIN,TOTAL 2.8 mg/dl (0.2-1.3); CALCIUM 8.8 mg/dl (8.4-10.2); CREATININE 0.76 mg/dl (0.61-1.24); POTASSIUM 3.6 mmol/L (3.5-5.1); TOTAL PROTEIN 6.3 g/dl (6.1-8.1)
[2016-10-22] MEDS: PANTOPRAZOLE 40 MG INJ IV SCH (06:19)
[2016-10-22 08:00] VITALS: BP 114/69; RESP 20
--- NOTE | 2016-10-22 09:54 | PDOCDIS ---
Discharge Instructions DIAGNOSIS Discharge Diagnosis Cholelithiasis. Choledocholithiasis. CONDITION Patient Condition: Stable HOME CARE INSTRUCTIONS: Diet Instructions: Low Fat /Cholesterol OTHER ORDERS: Other Orders: 1. Follow a low-cholesterol diet. 2. Follow-up with your primary care physician in 1 week. Have your primary care physician arrange for outpatient surgical follow-up/have your insurance arrange for surgical follow-up at the earliest. 3. Take pain medications as needed. 4. Resume activities as tolerated. 5. Please go to the ER if you continue to have significant abdominal pain despite pain medications, persistent nausea and vomiting, worsening jaundice, persistent fevers, or any other unusual signs/symptoms. STEPHANIE HEATH NP Oct 22, 2016 09:54
[2016-10-22] MEDS ORDERED: TRAM-40 PO ×2 (09:55→09:57)
--- NOTE | 2016-10-22 10:46 | DS ---
Date/Time of Note Date/Time of Note DATE: 10/22/16 TIME: 10:44 Discharge Summary Admission/Discharge Info Admit Date/Time Oct 19, 2016 at 05:57 Discharge Date/Time Discharge Diagnosis 1. Cholelithiasis. 2. Choledocholithiasis. 3. Transaminitis with hyperbilirubinemia. Patient Condition: Stable Consults 1. Андрей Anthony MD, General Surgery. 2. Magaly Rodriguez MD, Gastroenterology. Procedures ERCP Impression: * Choledocholithiasis: 3 large stones measuring approximately 1.2 cm each * Post standard sphincterotomy * Post hurricane balloon dilatation of ampulla to 10 mm * Post stone extraction MRCP IMPRESSION: Cholelithiasis with mild gallbladder distension and wall thickening suggesting sequelae of cholecystitis. Choledocholithiasis with moderate intrahepatic biliary duct dilatation. Hx of Present Illness Reason for admission: Abdominal pain 1 month. Positive nausea. Consultants 1. Андрей Anthony MD, General surgery. 2. Magaly Rodriguez MD, Gastroenterology. This is a 36-year-old male with no significant past medical history who came to the emergency room with chief complaint of abdominal pain that has been intermittent and going on for the past 1 month with associated nausea. The patient verbalized the abdominal pain as epigastric that it is worse after eating with radiation to the back. The patient verbalized associated nausea but no vomiting. Patient denied any fevers. The patient rated the abdominal pain as 10/10. The patient sought medical attention twice as outpatient when he was sent home on antacids with no significant improvement. The patient denied any chest pain, dyspnea, dysuria, hematuria, diarrhea, melena, or hematochezia. In the emergency room, the patient was noticed to have hyperbilirubinemia with underlying transaminitis. The patient underwent a gallbladder ultrasound that showed cholelithiasis with thickened gallbladder wall and mildly dilated common bile duct. The patient was treated with IV Zosyn, IV analgesics and IV antiemetics in the emergency room. General surgery consult was called by the ER physician. Hospital Course The patient was admitted to inpatient setting. He was kept n.p.o. The patient was started on empiric antibiotics. The patient was provided with adequate pain control and IV fluids. The patient underwent an MRCP that showed choledocholithiasis with moderate intrahepatic biliary duct dilatation. Consequently, the patient underwent an ERCP with standard sphincterotomy, hurricane balloon dilatation of ampulla to 10 mm, and stone extraction on 2016. Status post ERCP, the patient was started on a diet. The patient had no significant gastrointestinal symptoms. The patient was evaluated by surgery and the surgeon recommended outpatient elective cholecystectomy. The patient had underlying transaminitis with hyperbilirubinemia secondary to cholelithiasis and choledocholithiasis that was improved throughout the patient' s hospital course. The patient had a stable hospital course. The patient will be discharged home today to be followed up with outpatient surgery for elective cholecystectomy at the earliest to avoid any recurrence of current symptoms. Discharge Instructions 1. Follow a low-cholesterol diet. 2. Follow-up with your primary care physician in 1 week. Have your primary care physician arrange for outpatient surgical follow-up/have your insurance arrange for surgical follow-up at the earliest. 3. Take pain medications as needed. 4. Resume activities as tolerated. 5. Please go to the ER if you continue to have significant abdominal pain despite pain medications, persistent nausea and vomiting, worsening jaundice, persistent fevers, or any other unusual signs/symptoms. The patient verbalized understanding of discharge instructions. I would like to thank all the consultants for seeing the patient, doing the necessary procedures, and providing clinical recommendations. Case discussed with Dr. Howard Roebling Meds Active Scripts Tramadol Hcl* (Ultram*) 50 Mg Tablet, 50 MG PO Q6H Y for PAIN, #14 TAB Prov:STEPHANIE HEATH [employer] 10/22/16 Reported Medications Multivitamins* (Theragran*) 1 Tab Tab, 1 TAB PO DAILY, TAB 10/19/16 Discontinued Reported Medications Ibuprofen* (Advil*) 200 Mg Capsule, 200 MG PO Q6H Y for PAIN, CAP 10/19/16 Follow-up Plan Case management to arrange for surgical follow-up for outpatient elective cholecystectomy. Primary Care Provider None Time spent on discharge: > 30 minutes Pending Labs Laboratory Tests Test 10/22/16 04:45 White Blood Count 4.710^3/ul (4.8-10.8) Red Blood Count 4.3610^6/ul (4.70-6.10) Hemoglobin 13.1g/dl (14.0-18.0) Hematocrit 38.3% (42.0-52.0) Mean Corpuscular Volume 87.8fl (82.0-101.0) Mean Corpuscular Hemoglobin 30.0pg (29.0-33.0) Mean Corpuscular Hemoglobin Concent 34.2g/dl (32.0-37.0) Red Cell Distribution Width 13.0% (11.5-14.5) Platelet Count 06957^3/UL (140-415) Mean Platelet Volume 10.2fl (7.4-10.4) Neutrophils % 45.7% (39.0-77.0) Lymphocytes % 38.4% (15.0-51.0) Monocytes % 8.1% (0.0-11.0) Eosinophils % 6.8% (0.0-7.0) Basophils % 0.8% (0.0-2.0) Nucleated Red Blood Cells % 0.0/100WBC (0.0-0.0) Neutrophils # 2.210^3/ul (1.6-7.5) Lymphocytes # 1.810^3/ul (0.8-2.9) Monocytes # 0.410^3/ul (0.3-0.9) Eosinophils # 0.310^3/ul (0.0-0.5) Basophils # 0.010^3/ul (0.0-0.1) Nucleated Red Blood Cells # 0.010^3/ul (0.0-0.0) Sodium Level 133mmol/L (135-144) Potassium Level 3.6mmol/L (3.5-5.1) Chloride Level 103mmol/L (97-110) Carbon Dioxide Level 28mmol/L (21-31) Anion Gap 6 (8-16) Blood Urea Nitrogen 9mg/dl (7-20) Creatinine 0.76mg/dl (0.61-1.24) Glucose Level 105mg/dl (70-220) Calcium Level 8.8mg/dl (8.4-10.2) Phosphorus Level 3.1mg/dl (2.5-4.9) Magnesium Level 2.0mg/dl (1.7-2.5) Total Bilirubin 2.8mg/dl (0.2-1.3) Direct Bilirubin 0.50mg/dl (0.00-0.20) Indirect Bilirubin 2.3mg/dl (0-1.1) Aspartate Amino Transf (AST/SGOT) 121IU/L (15-46) Alanine Aminotransferase (ALT/SGPT) 223IU/L (13-69) Alkaline Phosphatase 143IU/L (42-121) Total Protein 6.3g/dl (6.1-8.1) Albumin 3.8g/dl (3.3-4.9) Globulin 2.50g/dl (1.3-3.2) Albumin/Globulin Ratio 1.52 STEPHANIE HEATH NP Oct 22, 2016 10:46
--- NOTE | 2016-10-22 12:11 | PN ---
Date/Time of Note Date/Time of Note DATE: 10/22/16 TIME: 12:08 Assessment/Plan VTE Prophylaxis VTE Prophylaxis Intervention: ambulation Lines/Catheters IV Catheter Type (from [facility]): Peripheral IV Assessment/Plan Assessment/Plan Assessment * Choledocholithiasis with cholelithiasis ERCP/sphincterotomy/balloon dilatation/extraction of stone Choledocholithiasis: 3 large stones measuring approximately 1.2 cm each Post standard sphincterotomy Post hurricane balloon dilatation of ampulla to 10 mm Post stone extraction Plan * Continue present management * Stable for outpatient management * Follow up after 3 months for removal of stent after cholecystectomy * Case discussed with * Further orders will depend on clinical course Subjective 24 Hr Interval Summary Free Text/Dictation * Course reviewed with RN * Patient seen and examined * No untoward events overnight * Transaminase improving Exam/Review of Systems Vital Signs Vitals Vital Signs Date Time Temp Pulse Resp B/P Pulse Ox O2 Delivery O2 Flow Rate FiO2 10/22/16 08:00 98.7 70 20 114/69 98 10/20/16 22:42 Room Air Intake and Output 10/21/16 10/21/16 10/22/16 15:00 23:00 07:00 Intake Total 100 ml 1700 ml 1600 ml Output Total 750 ml 1000 ml Balance 100 ml 950 ml 600 ml Exam Constitutional: alert, oriented Psych: no complaints Head: normocephalic Eyes: nl conjunctiva Neck: non-tender, supple Respiratory: clear to auscultation, normal air movement Cardiovascular: nl pulses, regular rate and rhythm Gastrointestinal: nl liver, spleen, non-tender, soft Musculoskeletal: nl extremities to inspection, nl gait and stance Extremities: normal pulses Neurological: nl speech, nl strength Skin: nl turgor, No rash or lesions Lymph: nl lymph nodes Results Result Diagram: 10/22/16 0445 10/22/16 0445 Results 24 hrs Laboratory Tests Test 10/22/16 04:45 White Blood Count 4.7 L Red Blood Count 4.36 L Hemoglobin 13.1 L Hematocrit 38.3 L Mean Corpuscular Volume 87.8 Mean Corpuscular Hemoglobin 30.0 Mean Corpuscular Hemoglobin Concent 34.2 Red Cell Distribution Width 13.0 Platelet Count 348 Mean Platelet Volume 10.2 Neutrophils % 45.7 Lymphocytes % 38.4 Monocytes % 8.1 Eosinophils % 6.8 Basophils % 0.8 Nucleated Red Blood Cells % 0.0 Neutrophils # 2.2 Lymphocytes # 1.8 Monocytes # 0.4 Eosinophils # 0.3 Basophils # 0.0 Nucleated Red Blood Cells # 0.0 Sodium Level 133 L Potassium Level 3.6 Chloride Level 103 Carbon Dioxide Level 28 Anion Gap 6 L Blood Urea Nitrogen 9 Creatinine 0.76 Glucose Level 105 Calcium Level 8.8 Phosphorus Level 3.1 Magnesium Level 2.0 Total Bilirubin 2.8 #H Direct Bilirubin 0.50 #H Indirect Bilirubin 2.3 H Aspartate Amino Transf (AST/SGOT) 121 H Alanine Aminotransferase (ALT/SGPT) 223 H Alkaline Phosphatase 143 H Total Protein 6.3 Albumin 3.8 Globulin 2.50 Albumin/Globulin Ratio 1.52 Medications Medications Current Medications Sodium Chloride (NS) 1,000 ml @ 70 mls/hr [id number] IV Last administered on 10/21 20:58; Admin Dose 70 MLS/HR; Start 10/19/16 at 11:00 Ondansetron HCl (Zofran Inj) 4 mg Q6H PRN IV NAUSEA AND/OR VOMITING; Start 02/25 at 07:30 Acetaminophen (Tylenol Tab) 650 mg Q6H PRN PO PAIN LEVEL 1-3 OR FEVER; Start at 07:30 Morphine Sulfate (morphine) 2 mg Q4H PRN IV SEVERE PAIN LEVEL 7-10 Last administered on 10/21/16 13:11; Admin Dose 2 MG; Start 10/19/16 at 07:30 Pantoprazole 40 mg 40 mg DAILY@06 IV Last administered on 10/22/16 06:19; Admin Dose 40 MG; Start 10/20/16 at 06:00 Piperacillin Sod/ Tazobactam Sod (Zosyn 3.375gm/ 100 ml (Pmx)) 100 ml @ 200 mls /hr Q6 IVPB Last administered on 10/22/16 06:19; Admin Dose 200 MLS/HR; Start 10/19/16 at 12:00 ARAM WEN NP Oct 22, 2016 12:11
== END 2016-10-22 13:45 | disposition home or self-care (01) | DRG 446 ==
LOC: E/R 01:59 → MS1 05:57
PROVIDERS: ADMIT Family Medicine; ATTEND Family Medicine
PROC: 0F798ZZ Dilation of Common Bile Duct, Via Natural or Artificial Opening Endoscopic (ICD-10-PCS; 2016-10-20)
PROC: 0FC98ZZ Extirpation of Matter from Common Bile Duct, Via Natural or Artificial Opening Endoscopic (ICD-10-PCS; principal; 2016-10-20 13:00)
DX: K80.60 Calculus of gallbladder and bile duct with cholecystitis, unspecified, without obstruction (principal); K80.51 Calculus of bile duct without cholangitis or cholecystitis with obstruction
CPT/HCPCS: 36415; 74181; 74330; 76705; 80053; 80061; 81001; 83036; 83690; 83735; 84100; 84439; 84443; 85025; 85610; 85730; 96374; 96375; C9113; J0690; J1100; J2001; J2250; J2270; J2405; J2543; J3010; J7030; Q9967